=== PATIENT | female | born 1945 | race Caucasian/White ===

== ENCOUNTER 2017-11-25 19:10 | Emergency (ER) | payer MEDICARE, OTHER ==
--- OUTSIDE RECORDS SUMMARY | 2017-11-25 19:18 | XMS REPORT ---
:1945 External Reference #:[id number] Author Organization [facility] Address [address] [place] [address] Phone [phone] Care Team Providers Name Role Phone Valerie Nance Care Team Information [employer] Unavailable Valerie Nance Primary Care Physician Unavailable Payers Type Date Identification Numbers Payment Provider Subscriber Medicare Primary Effective: Policy Number: Medicare Mariusz Garcia 2009 [id number] PayID: [id number] [address] [place] [address] Commercial Effective: 2017 Policy Number: [facility] Derek Garcia [id number] Group Number: [id number] [address] PayID: [id number] [place] [address] Problems Date Description Provider Status Onset: 01/25/2012 Adult health examination Angella Mercado M.D. Active Onset: 01/25/2012 Hyperlipidemia Angella Mercado M.D. Active Onset: 01/25/2012 Osteochondropathy Angella Mercado M.D. Active Onset: 01/25/2012 Allergic rhinitis Angella Mercado M.D. Active Onset: 01/25/2012 Arthropathy Angella Mercado M.D. Active Onset: 03/15/2013 Hammer toe Valerie Nance M.D. Active Onset: 03/15/2013 Skin sensation disturbance Valerie Nance M.D. Active Onset: 10/12/2016 Postconcussion syndrome Valerie Nance M.D. Active Onset: 04/17/2015 Concussion injury of brain Valerie Nance M.D. Active Family History Date Family Member(s) Problem(s) Comments General Hypercholesterolemia many family members. 3 bros and 1 sister. General No fam hx lung,colon, breast CA.No fam hx DM. Father due to Natural Causes () - age 86. Mother due to Stroke () - at age 89 Mother Hypertension Mother Obesity First Son Zbigniew First Son high cholesterol. 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 Walking, hiking, gardening. Allergies, Adverse Reactions, Alerts Date Description Reaction Status Severity Comments 01/25/2012 NKDA active Medications Medication Date Status Form Strength Qnty SIG Indications Ordering Provider Myrbetriq 10/07 Active Tablets ER 25mg 30tabs take one R35.0 Valerie Novoa 24HR tablet Morgan, by mouth M.D. every morning (inconti nence) Physical 10/07 Active urinary R35.0 Valerie Novoa Therapy frequenc juancarlos Nance M.D. evaluate and treat. [place] 07/25 Active 1000 1 po qd Valerie Novoa Naturals Fish /2013 Harish Nance M.D. Atorvastatin 08/31 Active Tablets 10mg 90tabs 1 by Z00.00 Valerie Novoa Calcium mouth Morgan, every M.D. day Glucosamine 01/24 Active Capsules as Family Chondroitin directed [facility] Vitamin B 11/07 Active Capsules po qd Family [facility] Citracal + D 11/07 Active Tablets 315-200mg -Unit [facility] Vitamin C 11/07 Active Tablets 500mg 100tabs po qd [facility] Nasacort Aq 11/07 Active Aerosol 55mcg/Act 1units 2 sprays Ginger /2010 each von Felten, keyonnatril M.D. daily Vitamin E Active Chewtabs 400Unit Unknown /0000 Acetaminophen Active Tablets 325mg 2 tabs Unknown / po qid prn Physical 07/12 Hx evaluate F07.81 Valerie Novoa Therapy and Morgan, - treat M.D. 07/12 post concussi onal syndrome - dizzynes s. Occupational 07/12 Hx evaluate F07.81 Valerie Novoa Therapy and Morgan, - treat M.D. 10/07 post concussi onal syndrome - dizzynes s Ciprofloxacin 10/01 Hx Tablets 250mg 6tabs 1 tab N39.0 Colleen HCL /2015 twice a Eden, - day x 3 M.D. Doxycycline 09/03 Hx Tablets 100mg 6tabs 2 by Sumit Conn /2015 mouth Midura, - once for M.D. 09/30 tick bite Diflucan 10/13 Hx Tablets 200mg 2tabs 1 by B37.3 Valerie L. /2015 mouth Morgan, - now. M.D. 09/30 in one week as necessar y. Cipro 09/23 Hx Tablets 500mg 14tabs 1 by N39.0 Valerie L. /2014 mouth Morgan, - twice a M.D. Physical 09/05 Hx evaluate 780.4 Valerie Novoa Therapy /2013 /treat Morgan, - dizzynes M.D. 10/13 balance training Patient Has 11/08 Hx due to 850.9 Valerie Novoa Not Been Able /2013 concussi Morgan, To Ski Since - on. She M.D. 09/29/201407/25 probably be out for the rest of the season. Occupational 10/18 Hx evaluate 850.9 Valerie Novoa Therapy /2013 and Morgan, - treat M.D. 07/25 Concussi /2013 on Physical 08/31 Hx evaluate 726.19 Valerie Novoa Therapy /2011 /treat Morgan, - M.D. 04/20 Right shoulder /scapula r pain. Bactroban 12/24 Hx Ointment 2% 30gm apply to [facility] /2011 nasal cameron Tuttle, - cavity M.D. 10/09 lesions as needed [place] 11/07 Hx Capsules [facility] [place] Fish Oil 11/07 Hx Capsules 1000mg 1 by Valerie Novoa mouth Morgan, - every M.D. Omnaris 11/07 Hx Suspension 50mcg/Act Samples cameron Tuttle, - M.D. 11/07 Physical 07/26 Hx treatmen [place] Therapy t and cameron Tuttle, - evaluati M.D. 11/07 on of wrist pain ?tenosyn ovitis Celebrex 08/16 Hx Capsules 200mg 60caps 1 PO bid prn cameron Tuttle, - M.D. 12/29 Lipitor 06/09 Hx Tablets 10mg 30tabs 1 po qhs Angella Rhonda Jess - M.DJensen 01/24 Physical 06/09 Hx treatmen Ginger t and cameron Tuttle, - evaluati M.D. 12/29 on for Shoulder Pain/Inf r[place] tus Strain Ibuprofen 05/12 Hx Tablets 800mg 90tabs 1 po q8 hours cameron Tuttle, - with M.DJensen 11/07 Flonase 05/21 Hx Nasal Oneinhalr 2 Sprays Salazar J. Kavitha Rider, - Nostril M.D. 05/12 qd Flexeril 01/03 Hx 10mg 30units 1 tid Sumit T. prn Gurdeep, - Muscle M.D. 05/21 Spasm Naprosyn 01/03 Hx Tabs 500mg 30tabs 1 bid Sumit T. prn Gurdeep, - M.D. 05/21 Physical 01/03 Hx Treatmen Sumit T. Therapy t And Gurdeep, - Evaluati M.D. 05/21 on Of Upper Back And Shoulder Pain Septra DS 02/16 Hx 20units 1 PO bid Sumit T. Midperry, - M.D. 01/03 Flexeril 10/19 Hx 10mg 30units 1Tidprn Sumit Monzon Muscle Midura, - Spasm M.D. 11/24 Naproxen 07/21 Hx 375mg Tab 50units 1 PO tid Sumit Monzon prn Gurdeep, - M.DJensen 11/24 Physical 07/21 Hx Evaluati Sumit Monzon on And Gurdeep, - Treatmen M.D. 11/24 t RT Upper Back And Shoulder Strain Evista 04/30 Hx 60mg 30units 1 po qd Angella Ellis James MercadoDJensen 01/24 Ondansetron Hx Tablets take one Unknown HCL /0000 tablet - by mouth 07/25 times a day as needed for nausea Immunizations CPT Code Status Date Vaccine Lot # [id number] Given 07/11/2017 High-Dose, Influenza Virus Vacccine-fluzone 65 and older 92654 Given 07/24/2016 High-Dose, Influenza Virus Vacccine-fluzone 65 and older 22038 Given 08/18/2015 Influenza Vac, [place]riv[place], [place] [address] Given 04/17/2015 Pneumococcal Conjugate Vacc-13 [id number] 42598 Given 07/15/2014 High-Dose, Influenza Virus Vacccine-fluzone 65 and older [id number] Given 07/24/2013 Split Influenza Medicare: Fluzone [id number] 13841 Given 05/22/2013 Pneumococcal Immunization [id number] 68087 Given 07/21/2012 DO Not Use Split Influenza Virus Vaccine 78098 Given 08/12/2011 DO Not Use Split Influenza Virus Vaccine 90923 Given 04/26/2011 Zostivax [id number] 71554 Given 07/02/2010 DO Not Use Split Influenza Virus Vaccine [id number] 00430 Given 07/22/2009 DO Not Use Split Influenza Virus Vaccine 88727 Given 07/26/2008 DO Not Use Split Influenza Virus Vaccine [id number] 94615 Given 07/25/2007 DO Not Use Split Influenza Virus Vaccine [id number] 28987 Given 08/31/2005 DO Not Use Split Influenza Virus Vaccine Vital Signs Date Vital Result Comment 11/08/2017 BP Systolic 112 mmHg BP Diastolic 68 mmHg Heart Rate 76 /min Body Temperature 98.1 F Respiratory Rate 16 /min Height 63 inches 5'3" Weight 127.12 lb BMI (Body Mass Index) 22.5 kg/m2 10/07/2017 BP Systolic 118 mmHg BP Diastolic 64 mmHg Heart Rate 64 /min Body Temperature 98.0 F Respiratory Rate 16 /min Height 63 inches 5'3" Weight 123.00 lb BMI (Body Mass Index) 21.8 kg/m2 07/12/2017 BP Systolic 110 mmHg BP Diastolic 80 mmHg Heart Rate 72 /min Body Temperature 98.0 F Respiratory Rate 18 /min Height 63 inches 5'3" Weight 122.00 lb BMI (Body Mass Index) 21.6 kg/m2 12/28/2016 BP Systolic 98 mmHg BP Diastolic 68 mmHg Heart Rate 60 /min Body Temperature 97.9 F Respiratory Rate 18 /min Height 63 inches 5'3" Weight 129.00 lb BMI (Body Mass Index) 22.8 kg/m2 10/12/2016 BP Systolic 120 mmHg BP Diastolic 70 mmHg Heart Rate 72 /min Body Temperature 98.2 F Respiratory Rate 18 /min Height 63 inches 5'3" Weight 127.00 lb BMI (Body Mass Index) 22.5 kg/m2 10/01/2016 BP Systolic 112 mmHg BP Diastolic 64 mmHg Heart Rate 78 /min Body Temperature 97.5 F Height 64 inches 5'4" Weight 127.38 lb BMI (Body Mass Index) 21.9 kg/m2 10/13/2015 BP Systolic 116 mmHg BP Diastolic 66 mmHg Heart Rate 66 /min Body Temperature 98.4 F Respiratory Rate 16 /min Height 64 inches 5'4" Weight 130.00 lb BMI (Body Mass Index) 22.3 kg/m2 09/23/2015 BP Systolic 108 mmHg BP Diastolic 60 mmHg Heart Rate 64 /min Body Temperature 101.3 F Respiratory Rate 18 /min Height 64 inches 5'4" Weight 125.00 lb BMI (Body Mass Index) 21.5 kg/m2 04/17/2015 BP Systolic 110 mmHg BP Diastolic 70 mmHg Heart Rate 60 /min Body Temperature 98.3 F Respiratory Rate 18 /min Height 64 inches 5'4" Weight 127.00 lb BMI (Body Mass Index) 21.8 kg/m2 11/02/2014 BP Systolic 126 mmHg BP Diastolic 66 mmHg Heart Rate 60 /min Body Temperature 97.1 F Respiratory Rate 16 /min Height 64 inches 5'4" Weight 129.25 lb BMI (Body Mass Index) 22.2 kg/m2 09/05/2014 BP Systolic 118 mmHg BP Diastolic 70 mmHg Heart Rate 60 /min Body Temperature 98.1 F Respiratory Rate 18 /min Height 64 inches 5'4" Weight 132.00 lb BMI (Body Mass Index) 22.7 kg/m2 07/25/2014 BP Systolic 128 mmHg BP Diastolic 70 mmHg Heart Rate 64 /min Body Temperature 97.5 F Respiratory Rate 18 /min Height 64 inches 5'4" Weight 136.00 lb BMI (Body Mass Index) 23.3 kg/m2 11/29/2013 BP Systolic 130 mmHg BP Diastolic 70 mmHg Heart Rate 60 /min Body Temperature 97.7 F Respiratory Rate 18 /min Height 64 inches 5'4" Weight 137.00 lb BMI (Body Mass Index) 23.5 kg/m2 11/08/2013 BP Systolic 110 mmHg BP Diastolic 70 mmHg Heart Rate 64 /min Body Temperature 97.9 F Respiratory Rate 16 /min Height 64 inches 5'4" Weight 136.00 lb BMI (Body Mass Index) 23.3 kg/m2 10/18/2013 BP Systolic 112 mmHg BP Diastolic 70 mmHg Heart Rate 64 /min Body Temperature 98.3 F Respiratory Rate 16 /min Height 64 inches 5'4" Weight 137.00 lb BMI (Body Mass Index) 23.5 kg/m2 10/09/2013 BP Systolic 128 mmHg BP Diastolic 72 mmHg Heart Rate 72 /min Body Temperature 97.4 F Respiratory Rate 16 /min Height 64 inches 5'4" Weight 137.50 lb BMI (Body Mass Index) 23.6 kg/m2 04/20/2013 BP Systolic 108 mmHg BP Diastolic 66 mmHg Heart Rate 72 /min Body Temperature 96.8 F Respiratory Rate 12 /min Height 64 inches 5'4" Weight 144.00 lb BMI (Body Mass Index) 24.7 kg/m2 03/15/2013 BP Systolic 110 mmHg BP Diastolic 70 mmHg Heart Rate 68 /min Body Temperature 98.1 F Respiratory Rate 16 /min Height 64 inches 5'4" Weight 143.00 lb BMI (Body Mass Index) 24.5 kg/m2 08/31/2012 BP Systolic 110 mmHg BP Diastolic 70 mmHg Heart Rate 72 /min Body Temperature 98.2 F Height 63.5 inches 5'3.50" Weight 138.00 lb BMI (Body Mass Index) 24.1 kg/m2 01/25/2012 BP Systolic 116 mmHg BP Diastolic 66 mmHg Heart Rate 66 /min Body Temperature 98.3 F Height 63.5 inches 5'3.50" Weight 146.00 lb BMI (Body Mass Index) 25.5 kg/m2 Right Visual Acuity Distance 20/100 corrected Left Visual Acuity Distance 20/50 uncorrected 06/16/2011 BP Systolic 110 mmHg BP Diastolic 74 mmHg Heart Rate 72 /min Respiratory Rate 14 /min Height 63.5 inches 5'3.50" Weight 134.00 lb BMI (Body Mass Index) 23.4 kg/m2 12/24/2010 BP Systolic 110 mmHg BP Diastolic 70 mmHg Heart Rate 68 /min Body Temperature 98.4 F Height 63.5 inches 5'3.50" Weight 152.00 lb BMI (Body Mass Index) 26.5 kg/m2 11/07/2009 BP Systolic 100 mmHg BP Diastolic 66 mmHg Heart Rate 64 /min Height 64 inches 5'4" Weight 145.00 lb BMI (Body Mass Index) 24.9 kg/m2 07/26/2008 BP Systolic 112 mmHg BP Diastolic 60 mmHg Heart Rate 70 /min Height 64 inches 5'4" Weight 146.00 lb BMI (Body Mass Index) 25.1 kg/m2 07/25/2007 BP Systolic 130 mmHg BP Diastolic 50 mmHg Heart Rate 76 /min Body Temperature 98.3 F Respiratory Rate 12 /min Height 64 inches 5'4" Weight 136.00 lb BMI (Body Mass Index) 23.3 kg/m2 12/29/2006 BP Systolic 122 mmHg BP Diastolic 72 mmHg Heart Rate 76 /min Height 64 inches 5'4" Weight 142.00 lb BMI (Body Mass Index) 24.4 kg/m2 08/16/2006 BP Systolic 132 mmHg BP Diastolic 72 mmHg Heart Rate 72 /min Height 64 inches 5'4" Weight 144.00 lb BMI (Body Mass Index) 24.7 kg/m2 07/12/2006 BP Systolic 110 mmHg BP Diastolic 70 mmHg Heart Rate 60 /min Height 64 inches 5'4" Weight 138.00 lb BMI (Body Mass Index) 23.7 kg/m2 06/09/2005 BP Systolic 94 mmHg BP Diastolic 52 mmHg Heart Rate 60 /min Body Temperature 98.7 F Height 64 inches 5'4" Weight 130.00 lb BMI (Body Mass Index) 22.3 kg/m2 05/12/2005 BP Systolic 110 mmHg BP Diastolic 60 mmHg Body Temperature 98.5 F Height 64 inches 5'4" Weight 135.00 lb BMI (Body Mass Index) 23.2 kg/m2 05/21/2002 BP Systolic 120 mmHg BP Diastolic 74 mmHg Heart Rate 72 /min Body Temperature 97.9 F Height 64 inches 5'4" Weight 137.00 lb BMI (Body Mass Index) 23.5 kg/m2 10/10/2001 BP Systolic 104 mmHg BP Diastolic 68 mmHg Heart Rate 72 /min Weight 141.00 lb 01/04/2000 Weight 140.00 lb 02/16/1999 Body Temperature 98.0 F Weight 134.00 lb 11/24/1998 BP Systolic 90 mmHg BP Diastolic 60 mmHg Weight 133.50 lb 07/21/1998 BP Systolic 120 mmHg BP Diastolic 78 mmHg Body Temperature 95.0 F 04/30/1998 BP Systolic 96 mmHg BP Diastolic 68 mmHg Heart Rate 60 /min Body Temperature 96.3 F Height 65 inches 5'5" Weight 132.00 lb Results Test Date Test Result H/L Range Note Ua - Micro (Fma) 07/15/2017 Appearance yellow Color clear Glucose, Urine (Fma/CMC/CTX) neg Bilirubin neg Ketones neg SP Grav 1.015 Blood neg PH 7.0 Protein neg Urobil 0.2 Nitrite neg Leukocytes (Fma/CMC/Centrex) neg Hyaline - /Lpf Granular - /Lpf WBC (Fma,Centrex) 0-1 RBC - Mucus (Fma/CBC/Centrex) - /Lpf Epith occ /Lpf Bacteria trace /Hpf Amorphous (Fma/CMC/Centrex) - /Lpf Crystals, Fluid (Fma/CMC/CTX) - Z#Comments - Laboratory test 07/15/2017 Urine Culture And SEE RESULT BELOW 1 finding Sensitivities Lipid Profile 11/16/2016 Cholesterol 190 mg/dL 120-200 Triglycerides 46 mg/dL 30-200 HDL Cholesterol 87 mg/dL High 30-85 2 LDL (Calculated) 94 CALC 0-129 VLDL Cholesterol 9 mg/dL 0-50 HDL Risk Factor 2.2 CALC 0.0-4.4 Laboratory test finding 11/16/2016 TSH 2.89 mIU/L 0.50-6.00 Vitamin B-12 790 pg/mL 230-1050 Comprehensive Metabolic Prof 11/16/2016 Sodium 138 mEq/L 134-149 Potassium 4.1 mEq/L 3.6-5.5 Chloride 103 mEq/L 94-112 Carbon Dioxide 25 mEq/L 21-32 Glucose 104 mg/dL 70-105 BUN 15 mg/dL 6-26 Creatinine 0.7 mg/dL 0.6-1.4 BUN/Creat Ratio 21.4 CALC 8.0-36.0 Calcium 9.7 mg/dL 8.6-10.2 Total Protein 6.7 g/dL 6.4-8.3 Albumin 4.3 g/dL 3.8-5.5 Globulin 2.4 g/dL 2.0-4.8 A/G Ratio 1.8 CALC 0.6-2.3 Alk. Phosphatase 73 U/L 30-110 Alt (SGPT) 23 U/L 7-35 Ast (Sgot) 26 U/L 5-34 Total Bilirubin 0.5 mg/dL 0.2-1.3 GFR Non- >60 ml/min/1.73m^ >=60 GFR >60 ml/min/1.73m^ >=60 Complete Blood Count 11/16/2016 WBC 3.9 x10^3/UL 3.6-9.6 RBC 3.95 x10^6/UL 3.90-5.70 HGB 13.2 g/dL 12.1-17.2 HCT 39 % 36-50 MCV 98.0 fL High 82.2-97.4 MCH 33.4 pg High 27.6-33.3 MCHC 34.1 g/dL 33.0-35.5 RDW 13.4 % 11.6-13.7 PLT 205 x10^3/UL 150-400 MPV 7.5 fL 7.4-10.4 Gran # 2.6 x10^3/UL 1.5-7.2 Lymph# 1.2 x10^3/UL 0.7-4.9 Castro# 0.1 x10^3/UL 0.1-0.9 Gran % 62.6 % 42.2-75.2 Lymph % 32.8 % 20.5-51.1 Castro% 4.6 % 1.7-9.3 Laboratory test finding 11/16/2016 Folate Level 14.89 ng/mL 3.00-16.00 Laboratory test finding 11/16/2016 Vitamin D25 32 30-100 Ua - Micro (Fma) 10/01/2016 Appearance clear Color yellow Glucose, Urine (Fma/CMC/CTX) neg Bilirubin neg Ketones neg SP Grav 1.020 Blood small PH 7.0 Protein neg Urobil 0.2 Nitrite neg Leukocytes (Fma/CMC/Centrex) large WBC (Fma,Centrex) 30-40 RBC 3-5 Epith occ /Lpf Bacteria 2+ /Hpf Urine Culture Routine 10/01/2016 Urine Culture, Routine Final report 3 , 4 Result 1 See Comment: 3, 5 Ua - Micro (Fma) 10/13/2015 Appearance clear Color yellow Glucose, Urine (Fma/CMC/CTX) neg Bilirubin neg Ketones neg SP Grav 1.010 Blood neg PH 7.0 Protein neg Urobil 0.2 Nitrite neg Leukocytes (Fma/CMC/Centrex) neg Hyaline - /Lpf Granular - /Lpf WBC (Fma,Centrex) 0-1 RBC 0-1 Mucus rare /Lpf Epith - /Lpf Bacteria - /Hpf Amorphous - /Lpf Crystals, Fluid (Fma/CMC/CTX) - Z#Comments - Urine Culture Routine 09/23/2015 Urine Culture, Routine Final report 6 , 7 Result 1 See Comment: 6, 8 Antimicrobial Susceptibility See Comment: 6, 9 Ua - Micro (Fma) 09/23/2015 Appearance CLOUDY Color YELLOW Glucose, Urine (Fma/CMC/CTX) NEG Bilirubin NEG Ketones TRACE SP Grav 1.020 Blood LARGE PH 7.0 Protein SSA:4+ Urobil 0.2 Nitrite POSITIVE Leukocytes (Fma/CMC/Centrex) SMALL Hyaline - /Lpf Granular - /Lpf WBC (Fma,Centrex) >100 RBC >100 Mucus - /Lpf Epith RARE /Lpf Bacteria 2-3+ /Hpf Amorphous - /Lpf Crystals, Fluid (Fma/CMC/CTX) - Z#Comments - Complete Blood Count 07/30/2014 WBC 4.0 x10^3/UL 3.6-9.6 RBC 3.83 x10^6/UL Low 3.90-5.70 HGB 13.3 g/dL 12.1-17.2 HCT 38 % 36-50 MCV 100.0 fL High 82.2-97.4 MCH 34.6 pg High 27.6-33.3 MCHC 34.6 g/dL 33.0-35.5 RDW 11.2 % Low 11.6-13.7 PLT 223 x10^3/UL 150-400 MPV 7.5 fL 7.4-10.4 Gran # 2.3 x10^3/UL 1.5-7.2 Lymph# 1.5 x10^3/UL 0.7-4.9 Castro# 0.2 x10^3/UL 0.1-0.9 Gran % 57.4 % 42.2-75.2 Lymph % 37.3 % 20.5-51.1 Castro% 5.3 % 1.7-9.3 Comprehensive Metabolic Prof 07/30/2014 Sodium 134 mEq/L 134-149 Potassium 3.6 mEq/L 3.6-5.5 Chloride 101 mEq/L 94-112 Carbon Dioxide 30 mEq/L 21-32 Glucose 96 mg/dL 70-105 BUN 13 mg/dL 6-26 Creatinine 0.7 mg/dL 0.6-1.4 BUN/Creat Ratio 18.6 CALC 8.0-36.0 Calcium 9.7 mg/dL 8.6-10.2 Total Protein 7.0 g/dL 6.4-8.3 Albumin 4.5 g/dL 3.8-5.5 Globulin 2.5 g/dL 2.0-4.8 A/G Ratio 1.8 CALC 0.6-2.3 Alk. Phosphatase 57 U/L 30-110 Alt (SGPT) 25 U/L 7-35 Ast (Sgot) 24 U/L 5-34 Total Bilirubin 0.6 mg/dL 0.2-1.3 Lipid Profile 07/30/2014 Cholesterol 188 mg/dL 120-200 Triglycerides 71 mg/dL 30-200 HDL Cholesterol 76 mg/dL 30-85 LDL (Calculated) 98 CALC 0-129 VLDL Cholesterol 14 mg/dL 0-50 HDL Risk Factor 2.5 CALC 0.0-4.4 Laboratory test finding 07/30/2014 Vitamin D25 38 30-100 10 Vitamin B-12 931 pg/mL 230-1050 Folate Level >20.00 ng/mL High 3.00-16.00 TSH 2.46 mIU/L 0.50-6.00 Laboratory test finding 07/30/2014 Sed Rate (Fma/CMC/Centrex) 12MM Ua - Non Micro (Fma) 07/25/2014 Appearance YELLOW Color CLEAR Glucose, Urine (Fma/CMC/CTX) NEG Bilirubin NEG Ketones NEG SP Grav 1.015 Blood NEG PH 7.0 Protein NEG Urobil 0.2 Nitrite NEG Leukocytes (Fma/CMC/Centrex) NEG Surgical Pathology 12/05/2013 S RUN DATE: <SEE NOTE> Laboratory test 03/15/2013 Thin Prep SEE NOTE 12 finding W/HPV(Lsil/PAPITO/Asc) Lipid Profile 03/15/2013 Cholesterol 225 mg/dL High 120-200 HDL 63 mg/dL 30-85 Triglycerides 108 mg/dL 30-200 HDL Risk Factor 3.6 CALC 0.0-4.4 LDL (Calculated) 140 CALC High 0-129 VLDL (Calculated) 22 mg/dL 0-50 Laboratory test finding 03/15/2013 Creatine Kinase 154 U/L High 26-140 13 Comprehensive Metabolic Prof 03/15/2013 Albumin 4.7 g/dL 3.8-5.5 Alk. Phos. 81 U/L 30-110 Alt (SGPT) 25 U/L 7-35 Ast (Sgot) 24 U/L 5-34 BUN 20 mg/dL 6-26 Calcium 9.5 mg/dL 8.6-10.2 Chloride 94 mEq/L 94-112 Creatinine 0.8 mg/dL 0.6-1.4 Carbon Dioxide 26 mEq/L 21-32 Glucose 95 mg/dL 70-105 Sodium 137 mEq/L 134-149 Total Bilirubin 0.7 mg/dL 0.2-1.3 Total Protein 6.7 g/dL 6.3-8.1 Potassium 4.2 mEq/L 3.6-5.5 Globulin 2.0 g/dL 2.0-4.8 A/G Ratio 2.3 Calc 0.6-2.3 BUN/Creat Ratio 26.0 Calc 8.0-36.0 Laboratory test finding 03/15/2013 B12 628 pg/mL 230-1050 Folate >22.00 ng/mL High 3.00-16.00 Ferritin 32 ng/mL 15-200 Free T4 0.63 ng/dL Low 0.75-1.54 14 TSH 1.71 mIU/L 0.50-6.00 CBC Electronic ([facility]) 03/15/2013 WBC 4.7 3.6-9.6 RBC 4.14 3.90-5.70 Hemoglobin (Fma/CMC/CTX) 13.9 g/dL 12.1 - 17.2 Hematocrit (a/CMC/CTX) 43.5 % 36.1 - 50.3 Platelets 249 10^3/ul 150-400 Lymph% 36.4 20.5-51.1 Mixed% 9.7 Neutrophils % 53.9 Mean Corpuscular Vol 105 High 82.2-97.4 Mean Corpuscular Hemoglobin 33.5 High 27.6-33.3 Mean Corpuscular Hemo Concen 31.9 Low 32.0-36.0 RDW 11.5 Low 11.6-13.7 Mean Platelet Volume 7.2 6.5-11.0 Ua - Non Micro ([facility]) 03/15/2013 Appearance clear Color yellow Glucose neg Bilirubin neg Ketones neg SP Grav 1.015 Blood neg PH 6.5 Protein neg Urobil 0.2 Nitrite neg Leukocytes ([facility]/Centrex) neg Laboratory test finding 03/15/2013 Vitamin D, 25 Oh 26.3 ng/mL Low 30.0- 100.0 15 Lipid Profile 07/26/2012 Cholesterol 303 mg/dL High 120-200 HDL 63 mg/dL 30-85 Triglycerides 131 mg/dL 30-200 HDL Risk Factor 4.8 CALC High 0.0-4.4 LDL (Calculated) 214 CALC High 0-129 VLDL (Calculated) 26 mg/dL 0-50 Ua - Non Micro ([facility]) 01/25/2012 Appearance clear Color yellow Glucose, Urine ([facility]/CMC/CTX) neg Bilirubin neg Ketones trace SP Grav 1.020 Blood neg PH 5.5 Protein neg Urobil 0.2 Nitrite neg Leukocytes ([facility]/Centrex) neg Comprehensive Metabolic Prof 01/12/2012 Albumin 4.4 g/dL 3.8-5.5 Alk. Phos. 70 U/L 30-110 Alt (SGPT) 17 U/L 7-35 Ast (Sgot) 19 U/L 5-34 BUN 17 mg/dL 6-26 Calcium 8.8 mg/dL 8.6-10.2 Chloride 104 mEq/L 94-112 Creatinine 0.7 mg/dL 0.6-1.4 Carbon Dioxide 28 mEq/L 21-32 Glucose 91 mg/dL 70-105 Sodium 142 mEq/L 134-149 Total Bilirubin 0.4 mg/dL 0.2-1.3 Total Protein 6.8 g/dL 6.3-8.1 Potassium 3.9 mEq/L 3.6-5.5 Globulin 2.3 g/dL 2.0-4.8 A/G Ratio 1.9 Calc 0.6-2.2 BUN/Creat Ratio 23.0 Calc 8.0-36.0 Lipid Profile 01/12/2012 Cholesterol 209 mg/dL High 120-200 HDL 67 mg/dL 30-85 Triglycerides 174 mg/dL 30-200 HDL Risk Factor 3.1 CALC 0.0-4.0 LDL (Calculated) 107 CALC 0-129 VLDL (Calculated) 35 mg/dL 0-50 Ua - Non Micro (a) 12/24/2010 Appearance CLEAR Color YELLOW Glucose NEG Bilirubin NEG Ketones NEG SP Grav 1.010 Blood NEG PH 5.5 Protein NEG Urobil 0.2 Nitrite NEG Leukocytes (Fma/[facility]/Centrex) NEG Comprehensive Metabolic Prof 12/15/2010 Albumin 4.6 g/dL 3.8-5.5 Alk. Phos. 74 U/L 30-110 Alt (SGPT) 16 U/L 7-35 Ast (Sgot) 18 U/L 5-34 BUN 17 mg/dL 6-26 Calcium 9.3 mg/dL 8.6-10.2 Chloride 101 mEq/L 94-112 Creatinine 0.8 mg/dL 0.6-1.4 Carbon Dioxide 26 mEq/L 21-32 Glucose 95 mg/dL 70-105 Sodium 143 mEq/L 134-149 Total Bilirubin 0.5 mg/dL 0.2-1.3 Total Protein 7.0 g/dL 6.3-8.1 Potassium 4.0 mEq/L 3.6-5.5 Globulin 2.4 g/dL 2.0-4.8 A/G Ratio 1.9 Calc 0.6-2.2 BUN/Creat Ratio 22.8 Calc 8.0-36.0 Lipid Profile 12/15/2010 Cholesterol 246 mg/dL High 120-200 HDL 70 mg/dL 30-85 Triglycerides 162 mg/dL 30-200 HDL Risk Factor 3.5 CALC 0.0-4.0 LDL (Calculated) 144 CALC High 0-129 VLDL (Calculated) 32 mg/dL 0-50 Laboratory test finding 12/15/2010 TSH 5.75 mIU/L 0.50-6.00 CBC Electronic (a) 12/15/2010 WBC 4.4 3.6-9.6 RBC 3.94 3.90-5.70 Hemoglobin (Fma/CMC/CTX) 13.4 g/dL 12.1 - 17.2 Hematocrit (Fma/CMC/CTX) 39.0 % 36.1 - 50.3 Platelets 211 10^3/ul 150-400 Lymph% 32.8 20.5-51.1 Mixed% 6.4 Neutrophils % 60.8 Mean Corpuscular Vol 99 High 82.2-97.4 Mean Corpuscular Hemoglobin 34.1 High 27.6-33.3 Mean Corpuscular Hemo Concen 34.5 32.0-36.0 RDW 11.8 11.6-13.7 Mean Platelet Volume 7.8 6.5-11.0 Ua - Non Micro ([facility]) 11/07/2009 Appearance CLEAR Color YELLOW Glucose NEG Bilirubin NEG Ketones NEG SP Grav 1.015 Blood NEG PH 7.0 Protein NEG Urobil 0.2 E.U./dL Nitrite NEG Leukocytes (a/CMC/Centrex) NEG Laboratory test 11/07/2009 Thin Prep SEE NOTE 16 finding W/HPV(Lsil/PAPITO/Asc) Comprehensive 10/31/2009 Albumin 4.6 g/dL 3.8-5.5 Metabolic Prof Alk. Phos. 73 U/L 30-110 Alt (SGPT) 17 U/L 7-35 Ast (Sgot) 20 U/L 5-34 BUN 17 mg/dL 6-26 Calcium 9.4 mg/dL 8.6-10.2 Chloride 106 mEq/L 94-112 Creatinine 0.7 mg/dL 0.6-1.4 Carbon Dioxide 26 mEq/L 21-32 Glucose 92 mg/dL 70-105 Sodium 144 mEq/L 134-149 Total Bilirubin 0.4 mg/dL 0.2-1.3 Total Protein 6.8 g/dL 6.3-8.1 Potassium 3.7 mEq/L 3.6-5.5 Globulin 2.2 g/dL 2.0-4.8 A/G Ratio 2.1 Calc 0.6-2.2 BUN/Creat Ratio 23.6 Calc 8.0-36.0 Lipid Profile 10/31/2009 Cholesterol 219 mg/dL High 120-200 HDL 71 mg/dL 30-85 Triglycerides 179 mg/dL 30-200 HDL Risk Factor 3.1 CALC Low 4.2-7.0 LDL (Calculated) 112 CALC 0-129 VLDL (Calculated) 36 mg/dL 0-50 Complete Blood Count 10/31/2009 WBC 5.2 x10^3/uL 3.6-9.6 Gran# 3.2 x10^3/uL 1.5-7.2 Gran% 61.5 % 42.2-75.2 HCT 39 % 36-50 HGB 13.5 g/dL 12.1-17.2 Lymph# 1.7 x10^3/uL 0.7-4.9 Lymph% 32.3 % 20.5-51.1 MCH 33.8 pg High 27.6-33.3 MCV 98.8 fL High 82.2-97.4 MCHC 34.2 g/dL 33.0-35.5 Mo# 0.3 x10^3/uL 0.1-0.9 Mo% 6.2 % 1.7-9.3 MPV 8.2 fL 7.4-10.4 PLT 209 x10^3/uL 150-400 RBC 3.98 x10^6/uL 3.90-5.70 RDW 12.4 % 11.6-13.7 Laboratory test finding 10/31/2009 TSH 4.33 mIU/L 0.50-6.00 Laboratory test finding 07/26/2008 Thin Prep SEE NOTE 17 W/HPV(Lsil/PAPITO/Asc) Ua - Non Micro (Fma) 07/26/2008 Appearance CLEAR Color YELLOW Glucose, Urine (Fma/CMC/CTX) NEG Bilirubin NEG Ketones NEG SP Grav 1.010 Blood NEG Comprehensive Metabolic Prof 07/12/2008 Albumin 4.2 g/dL 3.8-5.5 18 Alk. Phos. 70 U/L 30-110 18 Alt (SGPT) 22 U/L 7-35 18 Ast (Sgot) 25 U/L 5-34 18 BUN 18 mg/dL 6-26 18 Calcium 9.9 mg/dL 8.6-10.2 18 Chloride 99 mEq/L 94-112 18 Creatinine 0.9 mg/dL 0.6-1.4 18 Carbon Dioxide 27 mEq/L 21-32 18 Glucose 88 mg/dL 70-105 18 Sodium 141 mEq/L 134-149 18 Total Bilirubin 0.6 mg/dL 0.2-1.3 18 Total Protein 7.5 g/dL 6.3-8.1 18 Potassium 4.2 mEq/L 3.6-5.5 18 Globulin 3.3 g/dL 2.0-4.8 18 A/G Ratio 1.3 Calc 0.6-2.2 18 BUN/Creat Ratio 19.6 Calc 8.0-36.0 18 Lipid Profile 07/12/2008 Cholesterol 230 mg/dL High 120-200 18 HDL 72 mg/dL 30-85 18 Triglycerides 125 mg/dL 30-200 18 HDL Risk Factor 3.2 CALC Low 4.2-7.0 18 LDL (Calculated) 133 CALC High 0-129 18 VLDL (Calculated) 25 mg/dL 0-50 18 Complete Blood Count 07/12/2008 WBC 5.3 x10^3/u 3.6-9.6 18 Gran# 3.0 x10^3/u 1.5-7.2 18 Gran% 57.4 % 42.2-75.2 18 HCT 40 % 36-50 18 HGB 13.7 g/dL 12.1-17.2 18 Lymph# 2.0 x10^3/u 0.7-4.9 18 Lymph% 37.3 % 20.5-51.1 18 MCH 33.3 pg 27.6-33.3 18 MCV 96.4 fL 82.2-97.4 18 MCHC 34.6 g/dL 33.0-35.5 18 Mo# 0.3 x10^3/u 0.1-0.9 18 Mo% 5.3 % 1.7-9.3 18 MPV 8.4 fL 7.4-10.4 18 PLT 239 x10^3/u 150-400 18 RBC 4.10 x10^6/u 3.90-5.70 18 RDW 12.5 % 11.6-13.7 18 Laboratory test finding 07/12/2008 TSH 5.74 mIU/L 0.50-6.00 18 Ua - Non Micro (Fma) 07/25/2007 Appearance CLEAR Color LT YELLOW Glucose NEG Bilirubin NEG Ketones NEG SP Grav 1.010 Blood NEG PH 5.5 Protein NEG Urobil 0.2 Nitrite NEG Leukocytes (a/[facility]) NEG Comprehensive Metabolic Prof 07/18/2007 Albumin 4.4 g/dL 3.8-5.5 18 Alk. Phos. 67 U/L 30-110 18 Alt (SGPT) 20 U/L 7-35 18 Ast (Sgot) 19 U/L 5-34 18 BUN 14 mg/dL 6-26 18 Calcium 9.1 mg/dL 8.6-10.2 18 Chloride 99 mEq/L 94-112 18 Creatinine 0.8 mg/dL 0.6-1.4 18 Carbon Dioxide 31 mEq/L 21-32 18 Glucose 90 mg/dL 70-105 18 Sodium 140 mEq/L 134-149 18 Total Bilirubin 0.5 mg/dL 0.2-1.3 18 Total Protein 7.1 g/dL 6.3-8.1 18 Potassium 4.1 mEq/L 3.6-5.5 18 Globulin 2.7 g/dL 2.0-4.8 18 A/G Ratio 1.6 Calc 0.6-2.2 18 BUN/Creat Ratio 17.0 Calc 8.0-36.0 18 Lipid Profile 07/18/2007 Cholesterol 234 mg/dL High 120-200 18 HDL 66 mg/dL 30-85 18 Triglycerides 119 mg/dL 30-200 18 HDL Risk Factor 3.5 CALC Low 4.2-7.0 18 LDL (Calculated) 144 CALC High 0-129 18 VLDL (Calculated) 24 mg/dL 0-50 18 Complete Blood Count 07/18/2007 WBC 5.0 x10\\S\\3/uL 3.6-9.6 18 Gran# 2.7 x10\\S\\3/uL 1.5-7.2 18 Gran% 54.5 % 42.2-75.2 18 HCT 41 % 36-50 18 HGB 13.9 g/dL 12.1-17.2 18 Lymph# 1.9 x10\\S\\3/uL 0.7-4.9 18 Lymph% 37.3 % 20.5-51.1 18 MCH 35.2 pg High 27.6-33.3 18 MCV 104.7 fL High 82.2-97.4 18 MCHC 33.6 g/dL 33.0-35.5 18 Mo# 0.4 x10\\S\\3/uL 0.1-0.9 18 Mo% 8.2 % 1.7-9.3 18 MPV 8.5 fL 7.4-10.4 18 PLT 225 x10\\S\\3/uL 150-400 18 RBC 3.95 x10\\S\\6/uL 3.90-5.70 18 RDW 12.9 % 11.6-13.7 18 Laboratory test finding 12/29/2006 BUN ([facility]) 17 mg/dL 6-26 Creatinine ([facility]/CTX) 0.9 mg/dL 0.6-1.4 Laboratory test 12/29/2006 Thin Prep W/HPV SEE IMAGE finding (Lsil/PAPITO/Asc) Lipid Profile ([facility]) 06/21/2006 Cholesterol 217 mg/dL High 120-200 Female ([facility]) Triglyceride 148 mg/dL 30-200 HDL-Chol 63 mg/dL 30-85 LDL, Calculated ([facility]) 124 CALC 0-129 VLDL 30 0-50 HDL Risk Factor ([facility]) 3.5 CALC Low 4.2-7.0 Liver Function ([facility]) 06/21/2006 Total Protein 7.3 g/dL 6.3-8.1 Albumin ([facility]) 4.2 3.8-5.5 A/G Ratio ([facility]) 1.4 0.6-2.2 Globulin 3.1 2.0-4.8 Alkaline Phosphatase (F/C/CTX) 57 U/L 30-110 Alt (SGPT) ([facility]) 15 10-40 Ast (Sgot) ([facility]) 20 U/mL 5-34 Bilirubin, Total 0.7 mg/dL 0.2-1.3 Bilirubin, Direct 0.2 mg/dL 0-0.6 Bilirubin, Indirect 0.56 ml/dl 0.10-1.0 Liver Function ([facility]) 08/23/2005 Total Protein 7.2 g/dL 6.3-8.1 Albumin ([facility]) 4.2 3.8-5.5 A/G Ratio (a/[facility]) 1.4 0.6-2.2 Globulin 3.0 2.0-4.8 Alkaline Phosphatase (F/C/CTX) 66 U/L 30-110 Alt (SGPT) (a/[facility]) 18 10-40 Ast (Sgot) (a/[facility]) 18 U/mL 5-34 Bilirubin, Total 0.6 mg/dL 0.2-1.3 Bilirubin, Direct 0.3 mg/dL 0-0.6 Bilirubin, Indirect 0.38 ml/dl 0.10-1.0 Lipid Profile ([facility]) Female 08/23/2005 Cholesterol 225 mg/dL High 120-200 Triglyceride 156 mg/dL 30-200 HDL-Chol 62 mg/dL 30-85 LDL, Calculated ([facility]) 131 CALC High 0-129 LDL Direct (/[facility]) - mg/dL 0-130 VLDL 31 0-50 HDL Risk Factor ([facility]) 3.6 CALC Low 4.2-7.0 Ua - Non Micro ([facility] New) 06/09/2005 Appearance CLEAR Color LT YELLOW Glucose NEG Bilirubin NEG Ketones NEG SP Grav 1.020 Blood NEG PH 6.5 Protein NEG Urobil 0.2 Nitrite NEG Leukocytes NEG Comp Metabolic ([facility]) 06/02/2005 Glucose, Serum (a/[facility]/CTX) 93 mg/dL 70- 105 Female BUN ([facility]) 17 mg/dL 6-26 Creatinine, Serum 0.8 mg/dL 0.6-1.4 BUN/Creatinin Ratio 21.0 8.0-36 Sodium 139 134-149 Potassium 3.9 3.6-5.5 Chloride 97 mEq/L 94-112 Co2 26 21-32 Calcium (a/[facility]) 10.1 mg/dL 8.6-10.2 Total Protein 6.6 g/dL 6.3-8.1 Albumin ([facility]) 4.1 3.8-5.5 Globulin 2.6 2.0-4.8 A/G Ratio (A/G Ratio) 1.6 0.6-2.2 Alkaline Phosphatase (F/C/CTX) 72 U/L 22-95 Alt (SGPT) ([facility]) 17 10-40 Ast (Sgot) ([facility]) 21 U/mL 5-34 Bilirubin, Total 0.4 mg/dL 0.2-1.3 Lipid Profile ([facility]) Female 06/02/2005 Cholesterol 241 mg/dL High 120-200 Triglyceride 140 mg/dL 30-200 HDL-Chol 43 mg/dL 30-85 LDL, Calculated ([facility]) 170 CALC High 0-129 LDL Direct ([facility]) - mg/dL 0-130 VLDL 28 0-50 HDL Risk Factor ([facility]) 5.6 CALC 4.2-7.0 CBC Electronic ([facility]) 06/02/2005 WBC 5.5 3.6-9.6 Lymphocytes 32.9 % 20.5 - 51.1 Monocytes 7.1 % 1.7-9.3 Granulocytes 60.0 % 42.2 - 75.2 Lymphocytes 1.8 10^3/uL 0.7 - 4.9 Monocytes 0.4 10^3/uL 0.1 - 0.9 Granulocytes 3.3 10^3/uL 1.5 - 7.2 RBC 3.78 Low 3.90-5.70 Hemoglobin ([facility]/CTX) 12.8 g/dL 12.1 - 17.2 Hematocrit ([facility]/CTX) 37.8 % 36.1 - 50.3 Mean Corpuscular Vol 100.0 High 82.2-97.4 Mean Corpuscular Hemaglobin 33.8 High 27.6-33.3 Mean Corpuscular Hemo Concen 33.8 33.0-36.0 RDW 12.5 11.6-13.7 Platelets 208. 10^3/ul 150-400 Mean Platelet Volume 8.3 7.4-10.4 Lipid Profile ([facility]) 05/22/2002 Cholesterol 280 mg/dL High 140-200 Triglyceride 142 mg/dL 30-150 VLDL 28 0-50 LDL-Calculated 178 High 0-160 HDL-Chol 74 35-85 Laboratory test finding 05/22/2002 Glucose 96 mg/dL 70 - 118 CBC With Diff ([facility]) 05/22/2002 WBC 5.8 3.6-9.6 Lymphocytes 31.3 % 20.5 - 51.1 Monocytes 7.1 % 1.7-9.3 Granulocytes 61.6 % 42.2 - 75.2 Lymphocytes 1.8 10^3/uL 0.7 - 4.9 Monocytes 0.4 10^3/uL 0.1 - 0.9 Granulocytes 3.6 10^3/uL 1.5 - 7.2 RBC 4.04 3.90-5.70 Hemoglobin 14.0 g/dL 12.1 - 17.2 Hematocrit 40.3 % 36.1 - 50.3 Mean Corpuscular Vol 99.7 High 82.2-97.4 Mean Corpuscular Hemaglobin 34.5 High 27.6-33.3 Mean Corpuscular Hemo Concen 34.6 33.0-34.8 RDW 12.7 11.6-13.7 Platelets 239 10^3/ul 150-400 Mean Platelet Volume 8.0 7.4-10.4 Laboratory test finding 10/10/2001 Creatine Kinase, Total 114 U/L 25-170 1 SEE RESULT BELOW Name: BRII GARCIAMARLENI Kay : [address]: Valerie Nance MD Acct: [id number] Unit: [id number] AGE: 72 Location: [facility] Re07/15/17 SEX: F Status: REG REF SPEC: [id number] MELISA: 07/15/17-[address] [facility] [address]: Valerie Nance MD REQ: [id number] RECD: 07/15/17 STATUS: COMP _ SOURCE: URINE SPDESC: ORDERED: Urine Culture COMMENTS: 1 flor urine c s tube Procedure Result Reported Site Urine Culture Final 07/16/17- 1622 ML No Growth (<1,000 CFU/mL) * ML - MAIN LAB ([facility]) . END OF REPORT * ML=Testing performed at Main Lab DEPARTMENT OF PATHOLOGY, [address] [place] [address] Rell Cotto M.D. Director [facility] # [id number] 2 RESULTS VERIFIED BY REPEAT ANALYSIS 3 SRC:clean catch 1 flor uri ne top 4 Source of Specimen: clean catch 1 flor uri 5 Source of Specimen: clean catch 1 flor uri Culture shows less than 10,000 colony forming units of bacteria per milliliter of urine. This colony count is not generally considered to be clinically significant. 6 SRC:URINE URINE IN VACUTAI NER 7 Source of Specimen: URINE URINE IN VACUTAI 8 Source of Specimen: URINE URINE IN VACUTAI Escherichia coli, identified by an automated biochemical system. Greater than 100,000 colony forming units per mL 9 Source of Specimen: URINE URINE IN VACUTAI S=Susceptible; I=Intermediate; R=Resistant P=Positive; N=Negative MICS are expressed in micrograms per mL Antibiotic RSLT#1 RSLT#2 RSLT#3 RSLT#4 Amoxicillin/Clavulanic Acid S Ampicillin S Cefepime S Ceftriaxone S Cefuroxime S Cephalothin S Ciprofloxacin S Ertapenem S Gentamicin S Imipenem S Levofloxacin S Nitrofurantoin S Piperacillin S Tetracycline S Tobramycin S Trimethoprim/Sulfa S 10 FASTING 11 RUN DATE: 12/07/13 [facility] LAB LIVE PAGE 1 RUN TIME: [address] [place] [id number] Specimen Inquiry Name: DEREK GARCIA Eliza : [address]: Robby Cotton MD Acct: [id number] Unit: [id number] AGE: 68 Location: [facility] Re12/05/13 SEX: F Status: REG REF SPEC: [id number] MELISA: 12/05/13- SUBM DR: Robby Cotton MD REQ: [id number] RECD: 12/05/13 STATUS: CARLOS ALAS DR: Valerie Nance MD _ ORDERED: LEVEL IV FINAL DIAGNOSIS Colon, hepatic flexure, biopsy: A. Tubular adenoma. B. No high grade dysplasia or malignancy. CLINICAL HISTORY Diverticulosis, personal history of polyps for screening colonoscopy. Abdomen soft, rectal negative. Usual bowel habits, no blood. Arthritis, Dr. Nance follow up concussion [facility]. POST-OPERATIVE DIAGNOSIS Screening colonoscopy to cecum with floppy loops, adult next time. Conclusion: 1. Right and left diverticulosis. 2. Polyp - six years. GROSS DESCRIPTION The specimen is received in formalin labeled Derek Garcia, Hepatic Flexure Polyp and consists of a 0.4 x 0.3 x 0.3 cm. cardona, polypoid, soft tissue fragment. Submitted entirely in one cassette. Signed (signature on file) Ginger Coto MD 04/15 5927 END OF REPORT * ML=Testing performed at Main Lab DEPARTMENT OF PATHOLOGY, [address] [place] [address] Rell Cotto M.D. Director [facility] Permit #[id number] 12 [email or web address] DEPARTMENT OF PATHOLOGY or Extension 5593 3RD MATE CYTOLOGY REPORT PATIENT: DEREK GARCIA : 1945 AGE: 68 Y SEX: F ACCT: [id number] PROCEDURE DATE: 03/15/2013 DATE RECEIVED: 03/16/2013 REQUESTING PROVIDER: VALERIE NANCE MD [place] [facility] [place]. [id number] PATIENT DATA: [id number] SPECIMEN SUBMITTED: * * (HPVII) THIN PREP W/HPV (LSIL/ASC/PAPITO) * * ENDOCERVICAL RELEVANT HISTORY: Prev.normal: 2010 SPECIMEN ADEQUACY SATISFACTORY FOR EVALUATION, ENDOCERVICAL TRANSFORMATION ZONE COMPONENT PRESENT GENERAL CATEGORIZATION NEGATIVE FOR INTRAEPITHELIAL LESIONS OR MALIGNANCY RECOMMENDATIONS Refer to the corresponding web sites for 2012 updated general recommendation guidelines of U.S. preventive service task force for cervical cancer screening, and www.asccp.org//wixrfqgnf7133. COMMENTS Thin Prep Pap tests are examined with an FDA approved location-guidance system. ADDITIONAL COPIES SENT TO: Screened/Rescreened Electronically Signed Sign Out Date/Time: by: by: JACOBO HAYWOOD, 03/16/2013 14:30 CT(ASCP) Note: The Pap smear is a screening test designed to aid in the detection of premalignant and malignant conditions of the uterine cervix. It is not a diagnostic procedure and should not be used as the sole means of detecting cervical cancer. Both false-positive and false-negative reports do occur. 00 UA Pap Smear performed at [facility] Dir: Maria R Archibald MD, [address] [facility] [address] 01 vest backer [facility] [place] Dir: Zbigniew Brown MD, [address] [facility] [address] 02 BN [facility] [place] Dir: Tod Mitchell MD, [address] [facility] [address] For inquiries regarding HPV test results, the physician may contact Lab [facility]: [phone] . 13 result stefany'd 14 RESULT STEFANY'D 15 Vitamin D deficiency has been defined by the [place] of Medicine and an Endocrine Society practice guideline as a level of serum 25-OH vitamin D less than 20 ng/mL (1,2). The Endocrine Society went on to further define vitamin D insufficiency as a level between 21 and 29 ng/mL (2). 1. IOM ([place] of Medicine). 2010. Dietary reference intakes for calcium and D. [place]: The National Academies Press. 2. Vick MF, Lauren NC, Mirian GALLEGOS, et al. Evaluation, treatment, and prevention of vitamin D deficiency: an Endocrine Society clinical practice guideline. JCEM. 2010; 96(7):1911-30. 16 alive.cn. DEPARTMENT OF PATHOLOGY or Extension 1013 3RD MATE CYTOLOGY REPORT PATIENT: DEREK GARCIA : 1945 AGE: 64 Y SEX: F ACCT: [id number] PROCEDURE DATE: 11/07/2009 DATE RECEIVED: 11/10/2009 REQUESTING PHYSICIAN: GINGER CANO MD [place] [facility]. [id number] PATIENT DATA: [id number] LMP: REPAIR COIL WINDER SPECIMEN SUBMITTED: * * (HPVII) THIN PREP W/HPV (LSIL/ASC/PAPITO) * * ENDOCERVICAL RELEVANT HISTORY: Menarche: Y Menopause: Y Contraceptive: NONE Prev.normal: 07/10 SPECIMEN ADEQUACY SATISFACTORY FOR EVALUATION, ENDOCERVICAL TRANSFORMATION ZONE COMPONENT PRESENT GENERAL CATEGORIZATION NEGATIVE FOR INTRAEPITHELIAL LESIONS OR MALIGNANCY ADDITIONAL COPIES SENT TO: Screened/Rescreened by: Electronically Signed by: KIANNA ADAMS(ASCP) Signed Date/Time 11/11/2009 12:09 Thin Prep Pap tests are examined with an FDA-approved location-guidance system (82591). Performed @ [facility] [address] [place] [address] "" 17 alive.cn. DEPARTMENT OF PATHOLOGY or Extension 9740 3RD MATE CYTOLOGY REPORT PATIENT: DEREK GARCIA : 1945 AGE: 63 Y SEX: F ACCT: [id number] PROCEDURE DATE: 07/26/2008 DATE RECEIVED: 07/30/2008 REQUESTING PHYSICIAN: GINGER CANO MD [place] [facility]. [id number] PATIENT DATA: [id number] LMP: MORE THAN 10 YEARS AGO SPECIMEN SUBMITTED: * * (HPVII) THIN PREP W/HPV (LSIL/ASC/PAPITO) * * ENDOCERVICAL RELEVANT HISTORY: Menopause: Y Prev.normal: 2006 SPECIMEN ADEQUACY SATISFACTORY FOR EVALUATION. THE PRESENCE OF TRANSFORMATION ZONE COMPONENT CANNOT BE DETERMINED DUE TO ATROPHIC CHANGES. GENERAL CATEGORIZATION NEGATIVE FOR INTRAEPITHELIAL LESIONS OR MALIGNANCY ADDITIONAL COPIES SENT TO: Screened/Rescreened by: Electronically Signed by: KIANNA CONNORS(ASCP) Signed Date and Time: 08/01/2008 13:22 Thin Prep Pap tests are examined with an FDA-approved location-guidance system (42085). Performed @ [facility] [address] [place] [address] 18 FASTING Procedures Date CPT Code Description Status Comment 08/19/2017 Mammogram Completed 04/29/2015 Mammogram Completed 12/05/2013 Colonoscopy Completed mild[-mod diverticulosis, tubular adenoma. repeat in 6 years. 03/26/2013 Mammogram Completed 09/12/2012 Bone Mineral Density Test Completed osteopenia. bone density decreased since 2006, previos dexa. 01/22/2011 Mammogram Completed 11/15/2008 Mammogram Completed 11/15/2007 Colonoscopy Completed 08/15/2007 Mammogram Completed 01/25/2007 Mammogram Completed 10/10/2001 10668 Electrocardiogram Complete Completed 11/24/1998 38785 Electrocardiogram Complete Completed Encounters Type Date Location Provider CPT E/M Dx Office Visit 11/08/2017 2:30p [facility] Samantha Tafoya, E[place] 27693 R35.0 J06.9 Office Visit 10/07/2017 3:10p [facility] Valerie Nance M.D. 25241 F07.81 H35.712 J31.0 R35.0 Office Visit 07/12/2017 11:20a [facility] Office Valerie Nance M.D. 46775 F07.81 J31.0 R35.0 Office Visit 12/28/2016 1:40p [facility] Valerie Nance M.D. 83921 E78.4 F07.81 H91.92 M25.561 F43.21 Office Visit 10/12/2016 2:00p [facility] Valerie Nance M.D. 70009 Z00.00 F07.81 E55.9 E78.4 N39.0 G31.84 H91.92 Office Visit 10/01/2016 10:10a [facility] Colleen Adame M.D. 07093 N39.0 Office Visit 10/13/2015 12:40p Main Office Valerie Nance M.D. 46569 N39.0 J00 B37.3 Office Visit 09/23/2015 2:00p [facility] Valerie Nance M.D. 11653 N39.0 Office Visit 04/17/2015 1:40p [facility] Valerie Nance M.D. 87636 272.4 850.9 V76.12 V03.82 Office Visit 11/02/2014 11:30a Main Office Valerie Nance M.D. 36638 719.45 782.9 Office Visit 09/05/2014 3:20p [facility] Valerie Nance M.D. 41626 780.4 272.4 790.09 Office Visit 07/25/2014 1:50p [facility] Valerie Nance M.D. 90935 V70.0 272.4 735.4 728.85 719.49 268.9 780.4 Office Visit 11/29/2013 3:00p [facility] Valerie Nance M.D. 04898 850.9 272.4 Office Visit 11/08/2013 3:00p [facility] Valerie Nance M.D. 65476 850.9 Office Visit 10/18/2013 3:10p [facility] Valerie Nance M.D. 79419 850.9 Office Visit 10/09/2013 9:50a Main Office Valerie Nance M.D. 50949 850.9 E003.2 E888.9 Office Visit 04/20/2013 3:40p [facility] Valerie Nance M.D. 01350 268.9 272.4 735.4 V70.0 Office Visit 03/15/2013 10:50a [facility] Valerie Nance M.D. 34668 V70.0 V72.31 272.4 733.90 477.9 735.4 782.0 268.9 750.26 Office Visit 08/31/2012 3:20p [facility] Valerie Nance M.D. 29550 272.4 733.90 716.99 726.19 Office Visit 01/25/2012 2:00p Main Office Angella Mercado M.D. 52863 V70.0 272.4 733.90 477.9 716.99 Office Visit 06/16/2011 11:40a Main Office Ginger Cano, 45044 727.03 M.D. Office Visit 12/24/2010 2:00p [facility] Office Ginger Cano, 21206 V70.0 M.D. 272.4 733.90 727.05 V72.31 Office Visit 11/07/2009 9:00a [facility] Office Ginger Cano, 08208 V70.0 M.D. V72.31 272.4 733.09 Office Visit 07/26/2008 3:00p [facility] Ginger Cano, 49229 V04.81 M.D. V70.0 V72.31 733.90 726.90 272.4 Office Visit 07/25/2007 1:10p Main Office Ginger Cano M.D. 66421 V70.0 V04.81 272.4 733.90 Office Visit 12/29/2006 2:10p Main Office Ginger Cano, 82124 719.45 M.D. Office Visit 08/16/2006 7:00p Main Office Ginger Cano, 76134 719.41 M.D. Office Visit 07/12/2006 9:40a [facility] Office Ginger Cano, 81792 720.2 M.D. 272.4 V58.69 Office Visit 06/09/2005 1:40p [facility] Office Ginger Cano, 79598 272.0 M.D. 720.2 V70.0 Office Visit 05/12/2005 11:20a [facility] Ginger Cano, 62610 720.2 M.D. Office Visit 05/21/2002 10:20a [facility] Office aSlazar Rider M.D. 81682 Office Visit 10/10/2001 3:00p [facility] Office Chris Cm M.D. 15119 Plan of Care Future Appointment(s):04/06/2018 3:20 pm - Valerie Nance M.D. at [facility] Fanfxi7011/08/2017 - Samantha Tafoya, NPR35.0 Frequency of micturitionNew Labs:Urine Culture & SensitivityUa - Non Micro (Fma)Comments: ~U_Supportive Care~u_: Drink lots of fluidsAvoid caffeine/alcoholwear cotton underweardo not soak inhot tubs/ bath tubs urinate after sexual intercourse Do not soak in tubsDo not use liquid body washMake sure you are rinsing area well with each shower Pain/Fever - JmkjwztB83.9 Acute upper respiratory infection, unspecifiedComments:patient agrees to call if symptoms worsen Upper respiratory infections are rough on your system. Not only do they make you really tired but they dehydrate you really quickly! Supportive care: 1) Make sure you are resting. This is the only way the body can take the energy it needs to heal itself. 2) Fluids, fluids, fluids! - Drink a lot of water or other caffeine free, clear liquids - Use a humidifier in your room at night - If tolerated, use a ~B_saline nasal spray~b_ to help clear out your sinuses 3) Cough and blow it out, the more you can get out of your system the better4) Make sure you are washing your hands well so you are not spreading your illness to the community. 5) Try using ~B_Mucinex~b_, Tylenol, or Motrin for symptom reliefWe expect you to feel better in a few days, if you are notimproving or begin to get worse, please contact the office to be seen again.AllComments:~B_~U _Medication Management~b_~u_ Patient Understands medications she's taking? Yes No Are there Barriers to Adherence? Yes No Has the patient been asked about herbal supplements and therapies, and OTC meds? Yes No ~ B_~U_Care Plan~b_~u_1. Patient has been queried about patient's goals/ preferences and functional/lifestyle goals at relevant visits. If relevant, describe: na2. Treatment goals as explained to the patient: above3. Are there barriers to meeting treatment goals? Yes No If Yes, please describe:4. Self-Management goals as described to the patient: Yes NoFollow up:As always, we strongly encourage a healthy diet and making physical activity a part of your every day life. If you have questions about how or where to start, please contact the office.
[2017-11-25 19:32] VITALS: BP 123/69
--- NOTE | 2017-11-25 19:48 | UC ---
Skin Complaint HPI - HPI Summary HPI Summary: 72 yo WF presents with tick bite to left arm. She tells me that her and her were walking through a wooded area 3 days ago. Earlier today she had itching to her left triceps and noticed a tick. Her was able to remove it with tick tweezers and said it looked fully engorged. She is here for prophylactic lyme treatment. She currently has no symptoms. - History of Current Complaint Chief Complaint: UCSkin Time Seen by Provider: 11/25/17 19:42 Stated Complaint: TICK BITE Hx Obtained From: Patient Onset/Duration: Sudden Onset Current Severity: None Pain Intensity: 0 - Allergy/Home Medications Allergies/Adverse Reactions: Allergies Allergy/AdvReac Type Severity Reaction Status Date / Time No Known Allergies Allergy Verified 11/25/17 19:32 Home Medications: Home Medications Ascorbic Acid TAB* [Vitamin C TAB*] 500 mg PO DAILY 11/25/17 [History Confirmed 11/25/17] Calcium Carb, Citrate/Vit D3 [Calcium+D3 Gradual Releas] 1 tab PO DAILY [History Confirmed 11/25/17] Glucosam/Chond-MSM 2/C/D3/Lane [Vejvdtxlhd-Qwtjzqdxpjl-SUQ Tab] 1 tab PO DAILY 11/25/17 [History Confirmed 11/25/17] Multivitamin [Multivitamins] 1 cap PO DAILY 11/25/17 [History Confirmed 11/25/17 ] Chromo-3/Dha/Epa/Fish Oil [Fish Oil] 1 cap PO DAILY 11/25/17 [History Confirmed 11/25/17] Vitamin E Acid Succinate [Vitamin E] 400 unit PO WEEKLY 11/25/17 [History Confirmed 11/25/17] Review of Systems Constitutional: Negative Skin: Other - Redness left triceps Eyes: Negative ENT: Negative Respiratory: Negative Cardiovascular: Negative Gastrointestinal: Negative Musculoskeletal: Negative Neurological: Negative Psychological: Negative All Other Systems Reviewed And Are Negative: Yes PMH/Surg Hx/FS Hx/Imm Hx Previously Healthy: Yes - Surgical History Surgical History: Yes Surgery Procedure, Year, and Place: wrist fracture - Family History Known Family History: Positive: Unknown - Social History Occupation: Retired Lives: With Family Alcohol Use: Occasionally Substance Use Type: None Smoking Status (MU): Never Smoked Tobacco Physical Exam Triage Information Reviewed: Yes Appearance: Well-Appearing, No Pain Distress, Well-Nourished Vital Signs: Initial Vital Signs Temp 98.3 F 11/25/17 19:28 Pulse 74 11/25/17 19:28 Resp 16 11/25/17 19:28 BP 123/69 11/25/17 19:28 Pulse Ox 99 11/25/17 19:28 Vital Signs Reviewed: Yes Eyes: Positive: Conjunctiva Clear. Negative: Conjunctiva Inflamed, Discharge Neck: Positive: Supple, Nontender, No Lymphadenopathy Respiratory: Positive: Lungs clear, Normal breath sounds, No respiratory distress, No accessory muscle use Cardiovascular: Positive: RRR, No Murmur, Pulses Normal Neurological: Positive: Alert Psychological: Positive: Age Appropriate Behavior Skin: Positive: Other - Mild erythema with central bite to left triceps. Consistent with recent tick bite/removal. NTTP. No drainage or streaking Course/Dx - Course Course Of Treatment: Doxycycline 200mg po now. - Diagnoses Provider Diagnoses: Tick bite left arm Discharge - Discharge Plan Condition: Stable Disposition: HOME Patient Education Materials: Tick Bite (ED) Referrals: Valerie Mora MD [Primary Care Provider] - Additional Instructions: If you develop a fever, shortness of breath, chest pain, new or worsening symptoms - please call your PCP or go to the ED. Your blood pressure was high at todays visit. Please see your primary provider within 4 weeks for recheck and re-evaluation.
[2017-11-25] MEDS ORDERED: DOXYcycline CAP(*) 100 MG PO ONE (19:51)
== END 2017-11-25 19:55 | disposition home or self-care (01) ==
LOC: UCEAST 19:10
DX: S40.862A Insect bite (nonvenomous) of left upper arm, initial encounter (principal); W57.XXXA Bitten or stung by nonvenomous insect and other nonvenomous arthropods, initial encounter; Y93.01 Activity, walking, marching and hiking; Y92.821 Forest as the place of occurrence of the external cause
CPT/HCPCS: 99212; A9270-GY; G0463

== ENCOUNTER 2020-05-03 10:34 | Observation (INO) ==
[2020-05-03 11:58] LABS: ABS Eosinophils 0.1 10^3/ul (0-0.6); ABS Monocytes 0.4 10^3/ul (0-0.8); ABS Neutrophils 2.6 10^3/ul (1.5-7.7); Eosinophil % 1.7 %; Hematocrit 38 % (35-47); Hemoglobin 13.4 g/dL (12.0-16.0); Lymphocyte % 24.1 %; Mean Corpuscular HGB Conc 35 g/dL (31-36); Mean Corpuscular Hemoglobin 35 pg (27-31); Mean Corpuscular Volume 100 fL (80-97); Mean Platelet Volume 8.6 fL (7.4-10.4); Platelet Count 179 10^3/uL (150-450); Red Blood Count 3.84 10^6 /uL (3.70-4.87); Red Cell Distribution Width 14 % (10-15); White Blood Count 4.1 10^3/uL (3.5-10.8)
[2020-05-03 12:01] LABS: Albumin 4.3 g/dL (3.2-5.2); Albumin/Globulin Ratio 1.9 (1-3); BUN/Creatinine Ratio 23.9 (8-20); Calcium 9.5 mg/dL (8.6-10.3); EGFR African American 103.5 (>60); EGFR Non-African American 85.6 (>60); Globulin 2.3 g/dL (2-4); Potassium 3.9 mmol/L (3.5-5.0); Total Bilirubin 0.5 mg/dL (0.2-1.0); Total Protein 6.6 g/dL (6.4-8.9)
[2020-05-03] MEDS ORDERED: Iohexol 350 (CONTRAST) 500 ML MDV IV ONE (12:10)
[2020-05-03 13:42] LABS: Magnesium 2.2 mg/dL (1.9-2.7); Phosphorus 4.1 mg/dL (2.5-5.0)
[2020-05-03] MEDS ORDERED: Al Hydrox/Mg Hydrox/Simet LIQ 30 ML UDC PO PRN (13:58)
[2020-05-03] MEDS: Heparin 5000 UNITS/ML 1 mL VIAL SUBCUT SCH ×2 (15:14→21:02)
[2020-05-03] MEDS: Aspirin EC 81 mg TAB.EC (enteric coated) PO SCH (16:52)
[2020-05-04] MEDS: Heparin 5000 UNITS/ML 1 mL VIAL SUBCUT SCH (05:43)
[2020-05-04 07:00] LABS: HDL Cholesterol 75.9 mg/dL
[2020-05-04 07:45] VITALS: BP 138/69
[2020-05-04] MEDS: Aspirin EC 81 mg TAB.EC (enteric coated) PO SCH (08:28)
[2020-05-04] MEDS ORDERED: Memantine XR 14 mg CAP PO SCH (09:00)
== END 2020-05-04 10:50 | disposition home or self-care (01) ==
LOC: ED 10:34 → MEDTELE 10:34
PROVIDERS: ADMIT Internal Medicine; ATTEND Internal Medicine

== ENCOUNTER 2021-07-15 21:32 | Observation (INO) ==
[2021-07-15 22:07] LABS: ABS Eosinophils 0.1 10^3/ul (0-0.6); ABS Lymphocytes 1.3 10^3/ul (1.0-4.8); ABS Monocytes 0.5 10^3/ul (0-0.8); ABS Neutrophils 3.3 10^3/ul (1.5-7.7); Eosinophil % 1.6 %; Hematocrit 36 % (35-47); Hemoglobin 12.3 g/dL (12.0-16.0); Lymphocyte % 24.7 %; Mean Corpuscular HGB Conc 34 g/dL (31-36); Mean Corpuscular Hemoglobin 35 pg (27-31); Mean Corpuscular Volume 101 fL (80-97); Mean Platelet Volume 8.2 fL (7.4-10.4); Platelet Count 195 10^3/uL (150-450); Red Blood Count 3.54 10^6 /uL (3.70-4.87); Red Cell Distribution Width 13 % (10-15); White Blood Count 5.1 10^3/uL (3.5-10.8)
[2021-07-15 22:22] LABS: ALT 17 U/L (7-52); AST 19 U/L (13-39); Albumin/Globulin Ratio 1.5 (1-3); Alkaline Phosphatase 71 U/L (35-149); Anion Gap 5 mmol/L (2-11); Blood Urea Nitrogen 25 mg/dL (6-24); C Reactive Protein < 1.00 mg/L (<8.01); CO2 Carbon Dioxide 29 mmol/L (22-32); Calcium 9.8 mg/dL (8.6-10.3); Chloride 100 mmol/L (101-111); Globulin 2.6 g/dL (2-4); Glucose 138 mg/dL (70-100); Potassium 3.8 mmol/L (3.5-5.0); Sodium 134 mmol/L (135-145); Total Protein 6.6 g/dL (6.4-8.9)
[2021-07-15 22:24] LABS: Troponin I 0.01 ng/mL (<0.03)
[2021-07-15 23:26] LABS: TSH Ultra Thyroid Stim Horm 1.27 mcIU/mL (0.34-5.60)
[2021-07-16 00:09] LABS: Rapid COVID-19 Molecular Undetected (Undetected)
[2021-07-16 00:39] LABS: Urine Appearance Turbid; Urine Bilirubin Negative (Negative); Urine Blood Negative (Negative); Urine Color Yellow; Urine Glucose Negative (Negative); Urine Ketones Negative (Negative); Urine Nitrite Positive (Negative); Urine Protein Negative (Negative); Urine Specific Gravity 1.015 (1.002-1.030); Urine Urobilinogen Negative (Negative)
[2021-07-16] MEDS ORDERED: cefTRIAXone 1 gm/50 mL NS BAG 1 GM/50 ML BAG IV ONE (00:54)
[2021-07-16 00:55] LABS: Urine Amorphous Crystals Present (Absent); Urine Bacteria 1+ (Absent); Urine Red Blood Cell 2+(6-10/hpf) (Absent); Urine Squamous Epithelial Cell Present (Absent); Urine White Blood Cell 3+(>20/hpf) (Absent)
[2021-07-16] MEDS ORDERED: Lactated Ringers 500 ml BAG 500 ML IV SCH (02:00)
[2021-07-16] MEDS ORDERED: Enoxaparin 40 MG/0.4 ML SYR SUBCUT SCH (02:00)
[2021-07-16] MEDS ORDERED: Memantine XR 14 mg CAP PO SCH (09:00)
[2021-07-16] MEDS ORDERED: Aspirin EC 81 mg TAB.EC (enteric coated) PO SCH (09:00)
[2021-07-16 13:16] VITALS: BP 109/61
[2021-07-16] MEDS ORDERED: cefTRIAXone 1 gm/50 mL NS BAG 1 GM/50 ML BAG IVPB SCH (21:00)
== END 2021-07-16 16:10 | disposition home or self-care (01) ==
LOC: ED 21:32 → MEDTELE 21:32 → SUATTDRO 07-16 01:36 → MEDTELE 07-16 02:31
PROVIDERS: ADMIT Internal Medicine; ATTEND Internal Medicine